=== PATIENT | female | born 1985 | race Caucasian/White ===

== ENCOUNTER 2017-11-14 10:12 | Emergency (ER) | payer BC ==
[~2017-11-14] VITALS: Ht 165.1 cm; Wt 78.8 kg
[2017-11-14] MEDS ORDERED: MOTRIN800 MG PO (12:43)
[2017-11-14] MEDS ORDERED: FLEXERIL5 MG PO (12:43)
[2017-11-14 13:03] VITALS: BP 123/76
== END 2017-11-14 13:20 | disposition home or self-care (01) ==
LOC: EME 10:12
PROC: 0RSJXZZ Reposition Right Shoulder Joint, External Approach (ICD-10-PCS; principal; 2017-11-14)
DX: S43.014A Anterior dislocation of right humerus, initial encounter (principal); X50.1XXA Overexertion from prolonged static or awkward postures, initial encounter
CPT/HCPCS: 73030; 99281; 99285; J3010; J7030